=== PATIENT | male | born 1990 | race Caucasian/White ===

== ENCOUNTER → 2017-03-08 | Day surgery (SDC) | payer OTHER ==
[~2017-03-08] VITALS: Ht 182.9 cm; Wt 78.3 kg
[~2017-03-08] MED LIST: ATIVAN 1 MG1 MG PO; NORCO 10-325 T1 EACH PO; PERCOCET 10-321 EACH PO; SINGULAIR10 MG PO
--- NOTE | ~2017-03-08 | OR ---
PATIENT'S NAME: MARIAM TY [facility] AGE: 26 Y [address] ROOM: [place] [address] [place]ATION: [facility] [place] DATE: 03/08/2017 OR/Procedure Report DISCHARGE DATE: FAMILY PHYSICIAN: Gold Gonzalez MD ATTENDING PHYSICIAN: Lucrecia Contreras SURGEON: Baudilio Edouard MD LACE CUTTER: DATE OF PROCEDURE: 03/08/2017 PROCEDURE: Right L5-S1 transforaminal epidural steroid injection. INDICATION: The patient has lumbar disk disease, herniating disk with radiculopathy. Risks, benefits, and alternatives were explained to the patient, he wished to proceed. DESCRIPTION OF PROCEDURE: He was taken to the procedure room and placed in the prone position. Fluoroscopy was used to identify the L5-S1 interspace. The area was prepped with Betadine x3 and a sterile drape applied over top. The skin was numbed with 3 mL of 1% lidocaine. Next, fluoroscopy was used to guide a 22-gauge 3.5-inch spinal needle with gentle manual bend. Once it was felt to be in position, 1 mL of contrast was injected in the lateral and AP views. This showed good epidural spread. No intrathecal uptake. No intravascular uptake. Next, a mixture of 2 mL of 2% lidocaine and 10 mg of preservative-free Decadron were injected without complication. The stylette was placed, needle withdrew, and hemostasis achieved. A Band-Aid was placed over top. COMPLICATIONS: None. BLOOD LOSS: None. BAUDILIO EDOUARD MD JJP/modl /[id number] d: 03/08/172119 t: 03/21/17 1344, OPERATIVE SUMMARY
== END | disposition disaster alternative care site (69) ==
LOC: GPOC 03-06 13:00 → GSDC 12:39 → EDSTATUS 13:00 → GRAD 13:00 → GPOC 13:00
PROC: 3E0R3BZ Introduction of Anesthetic Agent into Spinal Canal, Percutaneous Approach (ICD-10-PCS; principal; 2017-03-08)
PROC: 3E0R33Z Introduction of Anti-inflammatory into Spinal Canal, Percutaneous Approach (ICD-10-PCS; 2017-03-08)
DX: M51.16 Intervertebral disc disorders with radiculopathy, lumbar region (principal); M48.07 Spinal stenosis, lumbosacral region; F17.200 Nicotine dependence, unspecified, uncomplicated
CPT/HCPCS: J1100

== ENCOUNTER → 2017-04-18 | Day surgery (SDC) | payer OTHER ==
[~2017-04-18] VITALS: Ht 182.9 cm; Wt 85.0 kg
--- NOTE | ~2017-04-18 | OR ---
PATIENT'S NAME: MARIAM TY [facility] AGE: 26 Y [address] ROOM: [place] [id number] LOCATION: [facility] [place] [facility] [place] ADMIT DATE: 04/18/2017 OR/Procedure Report DISCHARGE DATE: FAMILY PHYSICIAN: Gold Gonzalez MD ATTENDING PHYSICIAN: Lucrecia Contreras SURGEON: Baudilio Edouard MD FINGER BUFFS ASSEMBLER: DATE OF PROCEDURE: 04/18/2017 PROCEDURE PERFORMED: L5-S1 interlaminar epidural steroid injection. INDICATION: The patient has lumbar disk disease with bilateral radiculopathy. He has a bulging disk and low back pain. The patient was previously in for epidural injection on March 11. He received a right transforaminal L5-S1 injection where he received minimal relief. MRI suggests a larger bulge on the left L5-S1, but his symptoms were greatest on the right. Today, his symptom is mostly indicated in the low back area with intermittent bilateral radiculopathy. After discussing prior injection and this injection, I decided to do an interlaminar approach so he hopefully gets some longer and greater relief. Risks, benefits, and alternatives were explained to the patient. He wished to proceed. DESCRIPTION OF PROCEDURE: He was taken to the procedure room and placed in the prone position. His back was prepped with Betadine x3, and fluoroscopy was used to identify the L5-S1 interspace. A sterile drape was placed on top. The area was prepped with Betadine x3. The skin was numbed with 1% lidocaine 3 mL. Next, using loss of resistance technique and fluoroscopic guidance, an 18-gauge Tuohy was advanced into position. Once this was felt to be in position, 1 mL of contrast was injected in the lateral view and in the AP view. This showed good epidural spread with no vascular uptake and no intrathecal spread. Next, a mixture of 3 mL of 0.25% bupivacaine and 80 mg of Depo-Medrol was injected without complication. The stylette placed, needle withdrawn, and hemostasis was achieved. BLOOD LOSS: None. COMPLICATIONS: None. BAUDILIO EDOUARD MD JJP/modl PATIENT'S NAME: MARIAM TY [facility] AGE: 26 Y [address] ROOM: [place] [address] LOCATION: [facility] [place] [facility] [place] ADMIT DATE: 04/18/2017 OR/Procedure Report DISCHARGE DATE: FAMILY PHYSICIAN: Gold Gonzalez MD ATTENDING PHYSICIAN: Lucrecia Contreras /[id number] d: 04/18/17 1127 t: 04/23/17 1603, OPERATIVE SUMMARY
== END | disposition disaster alternative care site (69) ==
LOC: GPOC 04-17 10:00 → GSDC 08:59
PROC: 3E0S3BZ Introduction of Anesthetic Agent into Epidural Space, Percutaneous Approach (ICD-10-PCS; principal; 2017-04-18)
PROC: 3E0S33Z Introduction of Anti-inflammatory into Epidural Space, Percutaneous Approach (ICD-10-PCS; 2017-04-18)
PROC: B01BZZZ Fluoroscopy of Spinal Cord (ICD-10-PCS; 2017-04-18)
DX: M51.17 Intervertebral disc disorders with radiculopathy, lumbosacral region (principal); M51.26 Other intervertebral disc displacement, lumbar region; F41.9 Anxiety disorder, unspecified; F17.200 Nicotine dependence, unspecified, uncomplicated; Z79.899 Other long term (current) drug therapy
CPT/HCPCS: J1040; J2001